=== PATIENT | female | born 1975 | race Caucasian/White ===

== ENCOUNTER → 2017-06-03 | Outpatient (CLI) | payer MEDICAID ==
--- NOTE | 2017-06-03 12:08 | RADIOLOGY REPORT (SQ) ---
EXAM DESCRIPTION: MRI LUMBAR SPINE WITHOUT COMPLETED DATE/TIME: 06/03/2017 10:48 am REASON FOR STUDY: LBP (M54.5) M54.5 LOW BACK PAIN COMPARISON: None. TECHNIQUE: Sagittal and Axial imaging includes T1, T2, STIR and gradient echo sequences. Coronal T2/ HASTE imaging. LIMITATIONS: None. FINDINGS: VISUALIZED UPPER ABDOMEN: Limited evaluation. No acute or suspicious findings suggested. SEGMENTATION: No transitional anatomy. The lowest well-developed disc space is labeled L5-S1. ALIGNMENT: Anatomic. VERTEBRAE: Intact. BONE MARROW: Mild fatty reactive endplate changes at L5-S1. DISC SIGNAL: Disc space loss of height with decreased T2 weighted intervertebral disc signal at L5-S1 . POSTERIOR ELEMENTS: Generally intact. No pars defect evident. HARDWARE: None in the spine. CORD AND CONUS: Normal in size and signal intensity. Conus at the L1-2 level. SOFT TISSUES: No aortic aneurysm seen. No bulky retroperitoneal adenopathy or mass. No paraspinal mas s or fluid. T10-11: At the upper edge of the field of view. Asymmetric bulky left-sided facet hypertrophy is pr esent causing mild to moderate left T10-11 foraminal narrowing. No central stenosis or significant r ight foraminal narrowing T11-12: Mild bilateral facet hypertrophy. No central stenosis or foraminal stenosis. T12-L1: No central or foraminal stenosis. Mild bilateral facet hypertrophy. L1-L2: No significant spinal stenosis or exit foraminal stenosis. Mild bilateral facet hypertrophy. L2-L3: No significant spinal stenosis or exit foraminal stenosis. Mild bilateral facet hypertrophy. L3-L4: No significant spinal stenosis or exit foraminal stenosis. Moderate bilateral facet hypertrop hy. L4-L5: Borderline central canal narrowing results from mild diffuse posterior disc bulging and modera te bilateral facet and ligament hypertrophy. No significant foraminal narrowing. . L5-S1: Mild diffuse posterior disc bulge and bony spurring is present right greater than left. Mild bilateral facet hypertrophy. There is moderate right foraminal narrowing at L5-S1 with partial effac ement of the fat around the exiting right L5 nerve root best shown on sagittal image 4. No significa nt left foraminal narrowing. SACRUM: Visualized upper sacrum intact. OTHER: No other significant findings. IMPRESSION: Mild lower lumbar degenerative changes as above. TECHNICAL DOCUMENTATION: JOB ID: [id number] [facility] [employer]- All Rights Reserved
== END ==
LOC: RAD 10:04
PROVIDERS: ATTEND Family Medicine
DX: M54.5 Low back pain (principal)
CPT/HCPCS: 72148

== ENCOUNTER 2018-11-01 21:11 | Emergency (ER) | payer SELFPAY ==
[2018-11-01 22:04] VITALS: BP 170/99
--- NOTE | 2018-11-01 22:43 | ER Document Report ---
HPI - HPI Time Seen by Provider: 11/01/18 22:16 Pain Level: 1 Context: Patient is a 43-year-old female who presents emergency department with a chief complaint of a Q-tip in her right ear. She was having some ringing in her ears earlier today and thought that she needed to clean her ears, therefore she put a Q-tip in her ear and the fluff part of the Q-tip got stuck there. She attempted to flush the contents out of her hear with water, but was unsuccessful. She d enies any other complaints. - CONSTITUTIONAL Constitutional: DENIES: Fever, Chills - EENT EENT: REPORTS: Ear Pain - Right. DENIES: Sore Throat, Nasal Drainage-Clear, Congestion - NEURO Neurology: DENIES: Headache - RESPIRATORY Respiratory: DENIES: Trouble Breathing, Coughing - REPRODUCTIVE Reproductive: DENIES: : - MUSCULOSKELETAL Musculoskeletal: DENIES: Extremity pain - DERM Skin Color: Normal Skin Problems: None Past Medical History - General Information source: Patient - Social History Smoking Status: Unknown if Ever Smoked Family History: Reviewed & Not Pertinent Vertical Provider Document - CONSTITUTIONAL Agree With Documented VS: Yes General Appearance: No Apparent Distress - INFECTION CONTROL TRAVEL OUTSIDE OF THE [place] IN LAST 30 DAYS: No - HEENT HEENT: Atraumatic, Normocephalic - NECK Neck: Normal Inspection Course - Re-evaluation Re-evalutation: The Q-tip tip was visualized on exam or right external auditory canal. Alligator forceps were used to extract the q-tip. Patient tolerated procedure well. Some erythema was noted to TM post q-tip extraction, but no signs of infection or swelling to both TM and external auditory canal. No mastoid bone tenderness. I do not suspect otitis externa, otitis media, or mastoiditis. The patient will follow up with PCM. Return precautions were given. Verbal discharge instructions were given to the the patient. They verbalized understanding, she is stable for discharge. - Vital Signs Vital signs: Temp Pulse Resp BP Pulse Ox 98.6 F 85 14 170/99 H 100 11/01/18 22:03 11/01/18 22:03 11/01/18 22:03 11/01/18 22:03 11/01/18 22:03 Discharge - Discharge Clinical Impression: Right ear pain Condition: Stable Disposition: HOME, SELF-CARE Additional Instructions: You were seen in the emergency department for a Q-tip stuck in your right ear. The Q-tip fluff was taken out here in the emergency department. Please follow- up with a primary care provider in regards to this visit. If you develop worsening ear pain, or any symptoms that are worsening to you, please return to the emergency department.
== END 2018-11-01 22:58 | disposition home or self-care (01) ==
LOC: ER 21:11
DX: T16.1XXA Foreign body in right ear, initial encounter (principal); H92.01 Otalgia, right ear; X58.XXXA Exposure to other specified factors, initial encounter; Y93.89 Activity, other specified
CPT/HCPCS: 99282